=== PATIENT | male | born 1995 | race Hispanic/Latino ===

== ENCOUNTER 2021-11-21 11:42 | Emergency (ER) | payer OTHER, SELFPAY ==
[2021-11-21 12:03] VITALS: PULSE 79; RESP 18; TEMP 36.4; O2SAT 98; BMI 36.6
--- NOTE | 2021-11-21 14:01 | ED.SKABFB ---
HPI - Skin/Abscess/Foreign Bdy General Chief complaint: Skin/Abscess/Foreign Body Stated complaint: Has pimple on back- language barrier Time Seen by Provider: 11/21/21 13:08 Source: patient Mode of arrival: Ambulatory Limitations: language barrier History of Present Illness HPI narrative: The patient has an abscess on his right back/flank. He had a small lump there several months ago. In the last couple weeks a lump the started enlarged. Over last 4 days the lump has greatly increased in size, with some drainage. He has severe pain. He has no fever chills. There is erythema at the site. He is not diabetic. He has no chronic skin disease. He has no injury at the site. He has previously required drainage of a facial abscess. There is no numbness at the site. He denies chronic medical issues. Hospital contracted translation services were utilized to communicate with this patient. Related Data Previous Rx's Medication Instructions Recorded sulfamethoxazole 800 1 tab PO DAILY 7 Days #14 tab 11/21/21 mg-trimethoprim 160 mg tablet tramadol 50 mg tablet 50 mg PO Q8H PRN #14 tab 11/21/21 Allergies Allergy/AdvReac Type Severity Reaction Status Date / Time No Known Drug Allergies Allergy Verified 11/21/21 12:02 Review of Systems Review of Systems ROS Unobtainable: All systems reviewed & are unremarkable except as noted in HPI and below Patient History Medical History (Updated 11/21/21 @ 14:09 by Anton Yañez MD) No chronic diseases present Surgical History (Updated 11/21/21 @ 14:09 by Anton Yañez MD) No significant past surgical history Social History Smoking Status: Never smoker Smoking Status: Never smoker alcohol intake frequency: 0-2 drinks per day Substance Use Type: does not use Exam Initial Vital Signs Initial Vital Signs: Vital Signs Temperature 97.5 F L 11/21/21 12:03 Pulse Rate 79 11/21/21 12:03 Respiratory Rate 18 11/21/21 12:03 Pulse Oximetry 98 11/21/21 12:03 Const General: cooperative, healthy appearing, comfortable, well developed and well groomed Back/Spine/Pelvis Other: Large abscess right lateral mid back. Skin Other: 4 x 4 cm raised abscess right mid back. There are multiple portions draining purulent ratios. There is induration and fluctuance, with surrounding cellulitis. Neuro General: patient alert, patient awake, patient oriented x3 and no focal motor deficits Procedures Abscess I/D I&D #1: Time of procedure: 14:11 Site: back Side (if applicable): right Local Anesthetic: lidocaine 1% and with epi Amount of anesthesia used (mL): 6 Technique: incised with #11 blade Amount of fluid expressed (mL): 10 Irrigation: Yes Packing used?: iodoform Course Course Course Narrative: Patient underwent I&D of the right back abscess. A wound culture was obtained. After eating the site and packing with iodoform, the site was then cleaned by the patient's nurse. Bandage was placed. The patient tolerated the procedure well. Orders Ordered: ED Orders 11/21/21 13:51 Wound Culture and Gram Stain Stat Discontinued Medications Lidocaine HCl (Lidocaine 1% (Pf) 5 Ml) 10 ml INJ NOW ONE Stop: 11/21/21 13:34 Last Admin: 11/21/21 14:18 Dose: 10 ml Documented by: AUREA Vital Signs Vital signs: Vital Signs - 8 hr 11/21/21 12:03 11/21/21 14:20 Temperature 97.5 F L Pulse Rate 79 80 Respiratory Rate 18 16 Blood Pressure 140/90 Pulse Oximetry 98 99 Discharge Plan Departure Patient Disposition: Home Clinical Impression: Abscess of skin or subcutaneous tissue Instructions: DI for Skin Abscess Activity Restrictions/Additional Instructions: You may shower, bathe normally. Advil as needed for pain. Tramadol every 6 hours for added pain control. Septra DS is an antibiotic, take this 2 times daily. See your doctor Friday as planned. Expected drainage from the wound site. Change bandages as needed. Return here if the packing falls out the wound before seeing your doctor. Prescriptions: New sulfamethoxazole-trimethoprim 800-160 mg tablet 1 tab PO DAILY 7 Days Qty: 14 0RF tramadol 50 mg tablet 50 mg PO Q8H PRN (Reason: pain) Qty: 14 0RF Stand Alone Forms: Work Release Note
[2021-11-21] MEDS: LIDOCAINE 1% (PF) 5 ML 10 ML INJ (14:18)
[2021-11-21 14:20] VITALS: BP 140/90; PULSE 80; RESP 16; O2SAT 99
--- NOTE | 2021-11-21 14:24 | PC.NURSE ---
Dr. Yañez I&D'd the abscess on the patient right side of middle of his back. patient tolerated well. packing placed inside by Dr. Yañez and I placed a guaze dressing over the wound. patient educated about how to take care of wound, change dressing at home and about taking his medications that were prescribed. patient is suppose to see his PMD tomorrow. patient advised to call PMD and see when they would like to see him. patient understood and all questions answered using the poultry killer line. provider aware.
== END 2021-11-21 14:16 | disposition home or self-care (01) ==
PROVIDERS: Emergency Provider Emergency Medicine
DX: L02.212 Cutaneous abscess of back [any part, except buttock and flank] (principal)
CPT/HCPCS: 10060; 87070; 87205; 99283

== ENCOUNTER 2021-11-23 11:11 | Emergency (ER) | payer OTHER, SELFPAY ==
[2021-11-23 11:44] VITALS: BP 131/67; PULSE 62; RESP 16; TEMP 37; O2SAT 100
--- NOTE | 2021-11-23 12:53 | ED.SKABFB ---
HPI - Skin/Abscess/Foreign Bdy General Chief complaint: Skin/Abscess/Foreign Body Stated complaint: wound is purple (from translation on phone) Time Seen by Provider: 11/23/21 11:35 Source: patient Mode of arrival: Ambulatory Limitations: language barrier Related Data Previous Rx's Medication Instructions Recorded sulfamethoxazole 800 1 tab PO DAILY 7 Days #14 tab 11/21/21 mg-trimethoprim 160 mg tablet tramadol 50 mg tablet 50 mg PO Q8H PRN #14 tab 11/21/21 Allergies Allergy/AdvReac Type Severity Reaction Status Date / Time No Known Drug Allergies Allergy Verified 11/23/21 11:55 Patient History Medical History No chronic diseases present Surgical History No significant past surgical history Social History Smoking Status: Never smoker Smoking Status: Never smoker alcohol intake frequency: 0-2 drinks per day Substance Use Type: does not use Exam Initial Vital Signs Initial Vital Signs: Vital Signs Temperature 98.6 F 11/23/21 11:44 Pulse Rate 62 11/23/21 11:44 Respiratory Rate 16 11/23/21 11:44 Blood Pressure 131/67 11/23/21 11:44 Pulse Oximetry 100 11/23/21 11:44 Course Orders Ordered: Discontinued Medications Tramadol HCl (Tramadol 50 Mg Tablet) 50 mg PO NOW ONE Stop: 11/23/21 12:35 Last Admin: 11/23/21 13:05 Dose: 50 mg Documented by: Vital Signs Vital signs: Vital Signs - 8 hr 11/23/21 11:44 11/23/21 13:07 Temperature 98.6 F Pulse Rate 62 80 Respiratory Rate 16 18 Blood Pressure 131/67 149/92 H Pulse Oximetry 100 98 Discharge Plan Departure Patient Disposition: Home Clinical Impression: Abscess of skin or subcutaneous tissue Qualifiers: Site of cutaneous abscess: trunk Site of cutaneous abscess of trunk: back Qualified Code(s): L02.212 - Cutaneous abscess of back [any part, except buttock] Cellulitis Qualifiers: Site of cellulitis: trunk Site of cellulitis of trunk: back Qualified Code(s): L03.312 - Cellulitis of back [any part except buttock] Instructions: DI for Wound Infection Activity Restrictions/Additional Instructions: You were seen today for follow-up of a skin abscess. We repacked the wound and put a clean dressing over it. Please continue to take all of your antibiotics as prescribed. Please follow-up with your doctor on November 29 as discussed, and he will be able to remove the packing inside the wound. You may continue to work as tolerated, as long as you keep the wound clean and covered. If the redness around the wounds spreads, your pain increases, or you develop a fever please return back to the ER. I hope you feel better soon. Prescriptions: No Action sulfamethoxazole-trimethoprim 800-160 mg tablet 1 tab PO DAILY 7 Days Qty: 14 0RF tramadol 50 mg tablet 50 mg PO Q8H PRN (Reason: pain) Qty: 14 0RF
--- NOTE | 2021-11-23 12:53 | ED.SKABFB ---
HPI - Skin/Abscess/Foreign Bdy <Lesly Torrez PA-C - Last Filed: 11/23/21 13:08> General Chief complaint: Skin/Abscess/Foreign Body Stated complaint: wound is purple (from translation on phone) Time Seen by Provider: 11/23/21 11:35 Source: patient Mode of arrival: Ambulatory Limitations: language barrier History of Present Illness HPI narrative: Patient is a 26-year-old man presenting with continued concerns after an I&D here in the ER 2 days ago. His wound is located on his right back. He states that the skin around his wound is still purple and inflamed, and he wanted to make sure this was normal. The wound is on his back so he is unable to see it himself, and he states his sister expressed concern while changing his dressing today. He was prescribed Bactrim and has taken 4 doses so far. He has been keeping his wound clean and dressed. He denies any pain, fever, nausea, vomiting, or any further complaints. Related Data Previous Rx's Medication Instructions Recorded sulfamethoxazole 800 1 tab PO DAILY 7 Days #14 tab 11/21/21 mg-trimethoprim 160 mg tablet tramadol 50 mg tablet 50 mg PO Q8H PRN #14 tab 11/21/21 Allergies Allergy/AdvReac Type Severity Reaction Status Date / Time No Known Drug Allergies Allergy Verified 11/23/21 11:55 Review of Systems <Lesly Torrez PA-C - Last Filed: 11/23/21 13:08> Review of Systems Narrative: GENERAL: Denies fatigue, fever, or chills HEENT: Denies ear pain, vision changes, sore throat, or difficulty swallowing RESPIRATORY: Denies shortness of breath, cough, or wheezing CARDIOVASCULAR: Denies chest pain, pressure, palpitations, or edema GASTROINTESTINAL: Denies, nausea, vomiting, changes in bowel movements, or abdominal pain : Denies dysuria, frequency, hematuria, or flank pain MUSCULOSKELETAL: Denies weakness, arthralgias, or myalgias SKIN: See HPI. NEUROLOGIC: Denies weakness, dizziness, headache, numbness, tingling or confusion PSYCHIATRIC: No concerning psychosocial issues. Patient History <Lesly Torrez PA-C - Last Filed: 11/23/21 13:08> Medical History No chronic diseases present Surgical History No significant past surgical history Social History Smoking Status: Never smoker Smoking Status: Never smoker alcohol intake frequency: 0-2 drinks per day Substance Use Type: does not use Exam <Lesly Torrez PA-C - Last Filed: 11/23/21 13:08> Narrative Exam Narrative: GENERAL: 26 year old patient appears stated age. Well-developed patient, in mild distress. HEAD: Atraumatic. Normocephalic. EYES: Pupils equal round and reactive. Extraocular motions intact. No scleral icterus. No injection or drainage. ENT: Nose without bleeding, purulent drainage. Throat without erythema, tonsillar hypertrophy or exudate. Airway patent. NECK: Trachea midline. Non tender CARDIOVASCULAR: Regular rate and rhythm without murmurs, gallops, or rubs. RESPIRATORY: Clear to auscultation. Breath sounds equal bilaterally. No wheezes, rales, or rhonchi. GASTROINTESTINAL: Abdomen soft, non-tender, nondistended. EXTREMITIES: No edema or joint tenderness. BACK: Nontender without deformity or crepitance. No flank tenderness. NEURO: AOx3. SKIN: 4x4cm open wound with surrounding cellulitis, packing is saturated and purulent draining is observed. Initial Vital Signs Initial Vital Signs: Vital Signs Temperature 98.6 F 11/23/21 11:44 Pulse Rate 62 11/23/21 11:44 Respiratory Rate 16 11/23/21 11:44 Blood Pressure 131/67 11/23/21 11:44 Pulse Oximetry 100 11/23/21 11:44 <Kaur Slade DO - Last Filed: 11/24/21 19:06> Initial Vital Signs Initial Vital Signs: Vital Signs Temperature 98.6 F 11/23/21 11:44 Pulse Rate 62 11/23/21 11:44 Respiratory Rate 16 11/23/21 11:44 Blood Pressure 131/67 11/23/21 11:44 Pulse Oximetry 100 11/23/21 11:44 Course <Lesly Torrez PA-C - Last Filed: 11/23/21 13:08> Orders Ordered: Discontinued Medications Tramadol HCl (Tramadol 50 Mg Tablet) 50 mg PO NOW ONE Stop: 11/23/21 12:35 Last Admin: 11/23/21 13:05 Dose: 50 mg Documented by: FIONAI Vital Signs Vital signs: Vital Signs - 8 hr 11/23/21 11:44 Temperature 98.6 F Pulse Rate 62 Respiratory Rate 16 Blood Pressure 131/67 Pulse Oximetry 100 <Kaur Slade DO - Last Filed: 11/24/21 19:06> Orders Ordered: Discontinued Medications Tramadol HCl (Tramadol 50 Mg Tablet) 50 mg PO NOW ONE Stop: 11/23/21 12:35 Last Admin: 11/23/21 13:05 Dose: 50 mg Documented by: RLRAMANI Vital Signs Vital signs: Vital Signs - 8 hr 11/23/21 11:44 Temperature 98.6 F Pulse Rate 62 Respiratory Rate 16 Blood Pressure 131/67 Pulse Oximetry 100 MDM - Skin/Abscess/Foreign Bdy <Lesly Torrez PA-C - Last Filed: 11/23/21 13:08> MDM Narrative Medical decision making narrative: Patient is a 26-year-old man presenting with continuing concerns after an I&D in the ER 2 days ago. Patient denied any increasing pain or fever, and is mainly worried today about the cellulitis surrounding the wound. He states he has taken 4 doses of his antibiotic prescription. Upon inspection, the wound packing was saturated with purulent drainage. I removed the old packing, irrigated the wound, repack the wound, and covered with a new dressing. I reviewed the wound culture results and advised the patient to continue taking his Bactrim prescription he was prescribed at his prior visit. Patient states that he has an appointment scheduled with his primary care doctor November 29 and I instructed him to keep this appointment, and to keep the packing inside his wound until this appointment and then his doctor can remove it for him. I also told him he could continue work as tolerated, as long as he kept the wound clean and dressed. I instructed him to return if the cellulitis continued to spread, his pain increases, he develops a fever, has any other concerning symptoms. A legal document specialist was used to communicate with the patient and he confirmed understanding and no further questions. Discharge Plan Departure Patient Disposition: Home Clinical Impression: Abscess of skin or subcutaneous tissue Qualifiers: Site of cutaneous abscess: trunk Site of cutaneous abscess of trunk: back Qualified Code(s): L02.212 - Cutaneous abscess of back [any part, except buttock] Cellulitis Qualifiers: Site of cellulitis: trunk Site of cellulitis of trunk: back Qualified Code(s): L03.312 - Cellulitis of back [any part except buttock] Instructions: DI for Wound Infection Activity Restrictions/Additional Instructions: You were seen today for follow-up of a skin abscess. We repacked the wound and put a clean dressing over it. Please continue to take all of your antibiotics as prescribed. Please follow-up with your doctor on November 29 as discussed, and he will be able to remove the packing inside the wound. You may continue to work as tolerated, as long as you keep the wound clean and covered. If the redness around the wounds spreads, your pain increases, or you develop a fever please return back to the ER. I hope you feel better soon. Prescriptions: No Action sulfamethoxazole-trimethoprim 800-160 mg tablet 1 tab PO DAILY 7 Days Qty: 14 0RF tramadol 50 mg tablet 50 mg PO Q8H PRN (Reason: pain) Qty: 14 0RF <Kaur Slade DO - Last Filed: 11/24/21 19:06> Cosign ED Attending Jarekature Attestation: I was immediately available in the department for consultation. Documentation has been reviewed. Patient seen by myself as well. Agree with current examination. Packing was removed, wound was irrigated and repacked by myself and SUSANNA Torrez, patient was given a dose of oral pain medication here. He is continuing to finish his antibiotics and has plan for follow-up in the several days for removal of packing and follow-up.
[2021-11-23] MEDS: TRAMADOL 50 MG TABLET PO (13:05)
[2021-11-23 13:07] VITALS: BP 149/92; PULSE 80; RESP 18; O2SAT 98
== END 2021-11-23 13:10 | disposition home or self-care (01) ==
PROVIDERS: Emergency Provider Physician Assistant
DX: L02.212 Cutaneous abscess of back [any part, except buttock and flank] (principal); L03.312 Cellulitis of back [any part except buttock and flank]
CPT/HCPCS: 99283

== ENCOUNTER 2021-11-24 22:48 | Emergency (ER) | payer OTHER, SELFPAY ==
[2021-11-24 22:55] VITALS: BP 149/56; PULSE 82; RESP 18; TEMP 37; O2SAT 98
--- NOTE | 2021-11-24 23:14 | ED.RECABL ---
HPI - Recheck/Abnormal Lab/Rx General Chief Complaint: Recheck/Abnormal Lab/Rx Stated Complaint: Revisit from yesterday, back wound Time Seen by Provider: 11/24/21 22:53 Source: patient Mode of arrival: Ambulatory Limitations: language barrier History of Present Illness HPI narrative: 26-year-old male who is [place]-speaking only. The language line was used for this visit. Was seen here a couple days ago and had an incision and drainage on the right side of his back. He was seen yesterday for re-evaluation. Was discharged home. He states he was told that if the packing came out he needed to return to the emergency department. He tried to change the bandage earlier today and the packing came out so he is here for evaluation of this. He reports no new symptoms. Related Data Previous Rx's Medication Instructions Recorded sulfamethoxazole 800 1 tab PO DAILY 7 Days #14 tab 11/21/21 mg-trimethoprim 160 mg tablet tramadol 50 mg tablet 50 mg PO Q8H PRN #14 tab 11/21/21 Allergies Allergy/AdvReac Type Severity Reaction Status Date / Time No Known Drug Allergies Allergy Verified 11/24/21 22:57 Review of Systems Constitutional Constitutional: Denies fever(s) Integumentary/Breasts Skin/Breast: Reports system reviewed and no additional complaints, except as documented Hematologic/Lymphatic On Anticoagulants: No Patient History Medical History No chronic diseases present Surgical History No significant past surgical history Social History Smoking Status: Never smoker Smoking Status: Never smoker alcohol intake frequency: 0-2 drinks per day Substance Use Type: does not use Exam Initial Vital Signs Initial Vital Signs: Vital Signs Temperature 98.6 F 11/24/21 22:55 Pulse Rate 82 11/24/21 22:55 Respiratory Rate 18 11/24/21 22:55 Blood Pressure 149/56 H 11/24/21 22:55 Pulse Oximetry 98 11/24/21 22:55 HENMT Head: normal to inspection and normocephalic Skin Other: Patient with a wound consistent with incision and drainage on his right back. There is a small around of erythema around the area. There is no drainage. Neuro General: patient alert and patient awake Course Vital Signs Vital signs: Vital Signs - 8 hr 11/24/21 22:55 Temperature 98.6 F Pulse Rate 82 Respiratory Rate 18 Blood Pressure 149/56 H Pulse Oximetry 98 MDM - Recheck/Abnormal Lab/Rx MDM Narrative Medical decision making narrative: The packing did seem to be mostly removed so was completely removed. New packing was placed. There is no indication to change any of his antibiotics. He has a follow-up with his primary doctor later this week. Was covered with another bandage. He was given care instructions and return precautions. He expressed understanding and agreement this plan. Discharge Plan Departure Patient Disposition: Home Clinical Impression: Encounter for wound re-check Activity Restrictions/Additional Instructions: Change the bandage as needed. Keep your appointment on November 29. Prescriptions: No Action sulfamethoxazole-trimethoprim 800-160 mg tablet 1 tab PO DAILY 7 Days Qty: 14 0RF tramadol 50 mg tablet 50 mg PO Q8H PRN (Reason: pain) Qty: 14 0RF
== END 2021-11-24 23:35 | disposition home or self-care (01) ==
PROVIDERS: Emergency Provider Emergency Medicine
DX: Z48.00 Encounter for change or removal of nonsurgical wound dressing (principal)
CPT/HCPCS: 99281